=== PATIENT | male | born 1945 | race Caucasian/White ===

== ENCOUNTER 2021-03-31 07:19 | Outpatient (CLI) | payer MEDICARE | END 2021-03-31 07:20 | disposition home or self-care (01) | LOC: PET 07:19 | PROVIDERS: ATTEND Nurse Practitioner Acute Care | DX: R47.01 Aphasia (principal) | CPT/HCPCS: 78803; A9552 ==

== ENCOUNTER 2022-06-22 21:24 | Inpatient (IN) | payer MEDICARE ==
[2022-06-22 22:24] LABS: Hemoglobin 13.5 g/dL (14.0-18.0); Mean Corpuscular HGB CONC 33.9 g/dL (32.0-36.0); Mean Corpuscular Hemoglobin 33.6 pg (27.0-31.0); Platelet Count 235 10x3/uL (130-400); RBC Distribution Width 10.7 % (11.5-14.5); Red Blood Cell (RBC) Count 4.02 mill/uL (4.70-6.10); White Blood Cell (WBC) Count 10.3 10x3/uL (4.8-10.8)
[2022-06-22 22:45] LABS: ALT (SGPT) 25 U/L (8-55); AST (SGOT) 26 U/L (5-34); Albumin 4.1 g/dL (3.4-4.8); Alkaline Phosphatase 66 U/L (40-110); Anion Gap 13 mmol/L (10-20); BUN (Urea Nitrogen) 16 mg/dL (8.4-25.7); Bilirubin, Total 0.6 mg/dL (0.2-1.2); Calc. Creatinine Clearance 0 mL/min (70-130); Calcium 8.9 mg/dL (7.8-10.44); Carbon Dioxide 21 mmol/L (23-31); Chloride 102 mmol/L (98-107); Estimated GFR 87; Globulin 3.2 g/dL (2.4-3.5); Glucose 104 mg/dL (83-110); Potassium 4.2 mmol/L (3.5-5.1); Protein, Total 7.3 g/dL (5.8-8.1); Sodium 132 mmol/L (136-145)
[2022-06-22 22:59] LABS: Band 2 % (5-11); Hypochromia SLIGHT = 6-15 cells (100X) (0-5/hpf); Lymphocytes 25 % (21-51); MDiff Complete? YES; Monocytes 12 % (0-10); Neutrophil 52 % (42-75); Platelet Morphology Comment Appears Adequate; Reactive Lymphocytes 9 % (0-10)
[2022-06-22 23:35] LABS: Bilirubin Negative (Negative); Blood, Urine Negative (Negative); Clarity Clear (Clear); Glucose, Urine (Dipstick) Normal (Negative); Ketone, Urine Negative (Negative); Leukocyte Negative Leu/uL (Negative); Nitrite Negative (Negative); Protein, Urine (Dipstick) 10 mg/dL (Neg-Trace); Specific Gravity, Urine 1.021 (1.002-1.036); Urobilinogen Normal mg/dL (Less than 2); pH, Urine 6.5 (5.0-9.0)
[2022-06-23] MEDS ORDERED: cefTRIAXone\\ROCEPHIN 2 GM VIAL ONE (00:38)
[2022-06-23] MEDS ORDERED: Azithromycin 500 MG VIAL ONE (00:38)
[2022-06-23 04:19] VITALS: BMI 27.0
[2022-06-23] MEDS ORDERED: Acetaminophen 650 MG Suppository PR PRN (05:48)
[2022-06-23] MEDS ORDERED: Ondansetron ODT 4 MG TAB PO PRN (05:48)
[2022-06-23] MEDS ORDERED: Ondansetron PF 4 MG/2 ML Vial IVP PRN (05:48)
[2022-06-23] MEDS: Melatonin 3 MG TAB PO PRN (20:59)
[2022-06-24 06:53] LABS: Anion Gap 14 mmol/L (10-20); BUN (Urea Nitrogen) 13 mg/dL (8.4-25.7); Calc. Creatinine Clearance 92 mL/min (70-130); Calcium 9.3 mg/dL (7.8-10.44); Carbon Dioxide 20 mmol/L (23-31); Chloride 105 mmol/L (98-107); Estimated GFR 88; Glucose 99 mg/dL (83-110); Potassium 3.8 mmol/L (3.5-5.1); Sodium 135 mmol/L (136-145)
[2022-06-24 08:07] LABS: Eosinophils 5 % (0-10); Lymphocytes 35 % (21-51); MDiff Complete? YES; Mean Corpuscular HGB CONC 33.9 g/dL (32.0-36.0); Mean Corpuscular Hemoglobin 33.6 pg (27.0-31.0); Mean Corpuscular Volume 99.3 fl (78.0-98.0); Mean Platelet Volume 8.5 fL (7.4-10.4); Monocytes 18 % (0-10); Neutrophil 42 % (42-75); Platelet Count 220 10x3/uL (130-400); RBC Distribution Width 10.6 % (11.5-14.5); Red Blood Cell (RBC) Count 4.16 mill/uL (4.70-6.10); White Blood Cell (WBC) Count 7.7 10x3/uL (4.8-10.8)
[2022-06-24] MEDS: Azithromycin 500 MG in Sodium Chloride 0.9% 250 ML 250 ML IVPB SCH (08:57)
[2022-06-24] MEDS: cefTRIAXone\\ROCEPHIN 1 GM in Sodium Chloride 0.9% 100 ML IVPB SCH (08:57)
[2022-06-24] MEDS: Sertraline 25 MG TAB PO SCH (08:58)
[2022-06-24] MEDS: Vit A,C & E/Lutein/Minerals Tablet PO SCH (09:02)
[2022-06-25] MEDS: Sertraline 25 MG TAB PO SCH (08:41)
[2022-06-25] MEDS: cefTRIAXone\\ROCEPHIN 1 GM in Sodium Chloride 0.9% 100 ML IVPB SCH (08:41)
[2022-06-25] MEDS: Azithromycin 500 MG in Sodium Chloride 0.9% 250 ML 250 ML IVPB SCH (08:44)
[2022-06-25] MEDS: Vit A,C & E/Lutein/Minerals Tablet PO SCH (10:33)
[2022-06-25] MEDS: Acetaminophen 325 MG TAB PO PRN (20:32)
[2022-06-25] MEDS: Melatonin 3 MG TAB PO PRN (20:32)
[2022-06-26 07:10] LABS: #Eosinphils 0.3 thou/uL (0.0-0.7); #Monocytes 0.9 thou/uL (0.11-0.59); #Neutrophils 3.3 thou/uL (1.40-6.50); %Basophils 0.3 % (0.0-1.0); %Eosinophils 4.5 % (0.0-10.0); %Lymphocytes 31.2 % (21.0-51.0); %Monocytes 13.9 % (0.0-10.0); %Neutrophils 50.1 % (42.0-75.0); Mean Corpuscular HGB CONC 33.5 g/dL (32.0-36.0); Mean Corpuscular Hemoglobin 33.4 pg (27.0-31.0); Mean Corpuscular Volume 99.7 fl (78.0-98.0); Mean Platelet Volume 8.7 fL (7.4-10.4); Platelet Count 215 10x3/uL (130-400); RBC Distribution Width 10.6 % (11.5-14.5); Red Blood Cell (RBC) Count 4.18 mill/uL (4.70-6.10); White Blood Cell (WBC) Count 6.5 10x3/uL (4.8-10.8)
[2022-06-26 07:14] LABS: Anion Gap 13 mmol/L (10-20); BUN (Urea Nitrogen) 12 mg/dL (8.4-25.7); Calc. Creatinine Clearance 103 mL/min (70-130); Calcium 8.9 mg/dL (7.8-10.44); Carbon Dioxide 21 mmol/L (23-31); Chloride 102 mmol/L (98-107); Estimated GFR 91; Glucose 143 mg/dL (83-110); Potassium 3.3 mmol/L (3.5-5.1); Sodium 133 mmol/L (136-145)
[2022-06-26] MEDS: Vit A,C & E/Lutein/Minerals Tablet PO SCH (08:07)
[2022-06-26] MEDS: cefTRIAXone\\ROCEPHIN 1 GM in Sodium Chloride 0.9% 100 ML IVPB SCH (08:07)
[2022-06-26] MEDS: Sertraline 25 MG TAB PO SCH (08:08)
[2022-06-26] MEDS ORDERED: FLU VACC QS2022-23(65YR UP)/PF 240 MCG/0.7 ML SYRINGE IM ONE (09:00)
[2022-06-26] MEDS: Azithromycin 500 MG in Sodium Chloride 0.9% 250 ML 250 ML IVPB SCH (09:29)
[2022-06-26] MEDS ORDERED: Potassium Chloride 20 MEQ TAB PO SCH (09:30)
[2022-06-26] MEDS ORDERED: Ziprasidone 20 MG CAP PO SCH ×2 (10:30→16:15)
[2022-06-26] MEDS: Acetaminophen 325 MG TAB PO PRN (20:17)
[2022-06-26] MEDS: Melatonin 3 MG TAB PO PRN (20:17)
[2022-06-27 06:59] LABS: Hemoglobin 14.6 g/dL (14.0-18.0); Mean Corpuscular HGB CONC 32.6 g/dL (32.0-36.0); Mean Corpuscular Hemoglobin 32.6 pg (27.0-31.0); Mean Platelet Volume 8.2 fL (7.4-10.4); Platelet Count 227 10x3/uL (130-400); RBC Distribution Width 10.7 % (11.5-14.5); Red Blood Cell (RBC) Count 4.48 mill/uL (4.70-6.10); White Blood Cell (WBC) Count 7.2 10x3/uL (4.8-10.8)
[2022-06-27 07:18] LABS: Anion Gap 12 mmol/L (10-20); BUN (Urea Nitrogen) 12 mg/dL (8.4-25.7); Calc. Creatinine Clearance 100 mL/min (70-130); Calcium 9.4 mg/dL (7.8-10.44); Carbon Dioxide 24 mmol/L (23-31); Chloride 103 mmol/L (98-107); Estimated GFR 90; Glucose 96 mg/dL (83-110); Potassium 4.1 mmol/L (3.5-5.1); Sodium 135 mmol/L (136-145)
[2022-06-27 08:35] VITALS: BP 137/80; TEMP 99.5
[2022-06-27] MEDS: Sertraline 25 MG TAB PO SCH (09:02)
[2022-06-27] MEDS: Vit A,C & E/Lutein/Minerals Tablet PO SCH (09:06)
[2022-06-27 09:54] LABS: Band 1 % (5-11); Eosinophils 4 % (0-10); Lymphocytes 40 % (21-51); MDiff Complete? YES; Monocytes 13 % (0-10); Neutrophil 33 % (42-75); RBC Morphology Normal; Reactive Lymphocytes 8 % (0-10)
== END 2022-06-27 15:00 | disposition home health service (06) | DRG 56 ==
LOC: ERS 21:24 → T4-A 06-23 02:26 → OBSVTOIN 06-25 08:02
PROVIDERS: ADMIT Internal Medicine; ATTEND Internal Medicine
DX: G30.9 Alzheimer's disease, unspecified (principal); F02.83 Dementia in other diseases classified elsewhere, unspecified severity, with mood disturbance; F05 Delirium due to known physiological condition; Z66 Do not resuscitate; Z51.5 Encounter for palliative care; Z20.822 Contact with and (suspected) exposure to COVID-19; G93.41 Metabolic encephalopathy; J18.9 Pneumonia, unspecified organism; E87.1 Hypo-osmolality and hyponatremia; E87.6 Hypokalemia; H35.30 Unspecified macular degeneration; Z96.611 Presence of right artificial shoulder joint; Z28.21 Immunization not carried out because of patient refusal; Z87.820 Personal history of traumatic brain injury; Z85.72 Personal history of non-Hodgkin lymphomas; Z79.899 Other long term (current) drug therapy; Z98.42 Cataract extraction status, left eye; Z98.41 Cataract extraction status, right eye
CPT/HCPCS: 36415; 51701; 70450; 71045; 80048; 80053; 81003; 84484; 85025; 87040; 93005; 96365; 96375; J0456; J0696; J3490; J7050; U0003; U0005